=== PATIENT | female | born 1935 | race Caucasian/White ===

== ENCOUNTER 2017-11-05 20:53 | Emergency (ER) | payer OTHER ==
[~2017-11-05] VITALS: Ht 162.6 cm; Wt 67.2 kg
[~2017-11-05 20:53] MED LIST: PRINIVIL10 MG PO; SIMVASTATIN5 MG PO; TRAMADOL HCL50 MG PO; ZOLOFT100 MG PO
[2017-11-05 21:17] LABS: HEMATOCRIT 33.8 % (36.0-46.0); HEMOGLOBIN 11.1 G/DL (11.9-15.5); MCH 30.6 PG (29.0-34.0); MCHC 32.8 G/DL (30.0-36.0); MCV 93.1 FL (83-99); PLATELET COUNT 221 K/uL (156-360); RBC DIS.WIDTH-CV 12.1 % (11.8-14.6); RBC DIS.WIDTH-SD 41.4 % (39-53); RED BLOOD COUNT 3.63 M/uL (3.80-5.20); WHITE BLOOD COUNT 5.1 K/uL (4.1-10.2)
[2017-11-05 21:50] LABS: CHLORIDE 105 mEq/L (99-109); POTASSIUM 4.4 mEq/L (3.7-5.4); SODIUM 140 mEq/L (136-147)
[2017-11-05 21:52] LABS: GLUCOSE 99 mg/dL (70-99)
[2017-11-05 21:56] LABS: CREATININE 1.1 mg/dL (0.6-1.3); GFR ESTIMATE (CALCULATED) 51 mL/min/
[2017-11-05 21:57] LABS: UREA NITROGEN (BUN) 21 mg/dL (9-23)
[2017-11-05 22:04] LABS: TROP-I INTERPRETATION NEGATIVE; TROPONIN-I < 0.01 ng/mL (0.0-0.30)
[2017-11-05] MEDS ORDERED: ZITHROMAX250 MG PO (22:21)
[2017-11-05] MEDS ORDERED: PROVENTIL HFA6.7 GM IH (22:21)
[2017-11-05 22:58] VITALS: BP 170/59
== END 2017-11-05 23:00 | disposition home or self-care (01) ==
LOC: EME 20:53
DX: J20.9 Acute bronchitis, unspecified (principal); I10 Essential (primary) hypertension; F32.9 Major depressive disorder, single episode, unspecified; F41.9 Anxiety disorder, unspecified; Z88.8 Allergy status to other drugs, medicaments and biological substances
CPT/HCPCS: 71046; 80048; 83880; 84484; 85027; 93005; 94640; 99281; 99285